=== PATIENT | female | born 1990 | race Caucasian/White ===

== ENCOUNTER 2021-12-26 13:29 | Emergency (ER) | payer BC ==
[2021-12-26 14:22] VITALS: BMI 24.8
[2021-12-26] MEDS ORDERED: SODIUM CHLORIDE 0.9% 500 ML INFUS.BAG IV ONE (14:52)
[2021-12-26 17:39] VITALS: BP 104/69; PULSE 112; TEMP 98.2
== END 2021-12-26 18:45 | disposition home or self-care (01) ==
LOC: JER 13:29
DX: J09.X2 Influenza due to identified novel influenza A virus with other respiratory manifestations (principal)
CPT/HCPCS: 0241U-QW; 99283-25